=== PATIENT | male | born 1940 | race Hispanic/Latino ===

== ENCOUNTER 2017-08-12 19:34 | Emergency (ER) | payer OTHER ==
[~2017-08-12] VITALS: Ht 177.8 cm; Wt 86.2 kg
[~2017-08-12 19:34] MED LIST: LANTUS SQ; NOVALOG SQ; Z.0.GABAPENTIN600 MG PO; Z.0.LASIX20 MG PO; Z.0.LISINOPRIL10 MG PO; Z.0.OMEPRAZOLE40 MG PO; [UNRECOGNIZED DRUG - OTHER] PO; [UNRECOGNIZED DRUG - OTHER] SQ
[2017-08-12] MEDS ORDERED: SODIUM CHLORIDE 0.9% 1000ML 1,000 ML IV ONE (20:15)
== END 2017-08-12 21:42 | disposition home or self-care (01) ==
LOC: FSED 19:34
DX: R53.1 Weakness (principal); R51 Headache; R42 Dizziness and giddiness; S93.491A Sprain of other ligament of right ankle, initial encounter; I10 Essential (primary) hypertension; E11.9 Type 2 diabetes mellitus without complications; E78.5 Hyperlipidemia, unspecified
CPT/HCPCS: 70450; 71045; 73610; 80048; 81003; 85025; 93005; 99284; J7030

== ENCOUNTER → 2017-12-02 | Emergency (ER) | payer OTHER ==
[~2017-12-02] MED LIST changes: +METFORMIN HCL500 M1
== END | disposition left against medical advice (07) ==
LOC: FSED 22:29
DX: R51 Headache (principal)

== ENCOUNTER 2018-01-23 02:21 | Emergency (ER) | payer OTHER ==
[~2018-01-23] VITALS: Ht 177.8 cm; Wt 76.8 kg
[~2018-01-23 02:21] MED LIST changes: -METFORMIN HCL500 M1
[2018-01-23] MEDS ORDERED: SODIUM CHLORIDE 0.9% 1000ML 1,000 ML IV STA (02:47)
[2018-01-23] MEDS ORDERED: ONDANSETRON HCL INJ 2 MG/ML VIAL IV ONE (03:00)
[2018-01-23] MEDS ORDERED: FAMOTIDINE 20 MG/2 ML VIAL IV ONE (03:00)
[2018-01-23] MEDS ORDERED: INSULIN REGULAR, HUMAN 100 UNIT/1 ML 3ML VIAL IV ONE (03:00)
[2018-01-23 03:37] VITALS: BP 156/79
[2018-01-23] MEDS ORDERED: INSULIN REGULAR, HUMAN 100 UNIT/1 ML 3ML VIAL SQ ONE (04:00)
== END 2018-01-23 03:57 | disposition home or self-care (01) ==
LOC: FSED 02:21
DX: E11.65 Type 2 diabetes mellitus with hyperglycemia (principal); E86.0 Dehydration; F41.9 Anxiety disorder, unspecified
CPT/HCPCS: 99284; J7030

== ENCOUNTER 2018-01-28 08:46 | Emergency (ER) | payer OTHER ==
[~2018-01-28] VITALS: Ht 172.7 cm; Wt 78.9 kg
[2018-01-28] MEDS ORDERED: INSULIN REGULAR, HUMAN 100 UNIT/1 ML 3ML VIAL IV NR (10:00)
--- NOTE | 2018-01-28 10:10 | Diagnostic Imaging Report ---
PROCEDURE:CXR 1 [facility] COMPARISON:None. INDICATIONS:SOB FINDINGS:The lungs are free of infiltrate. Linear scarring in the left lung base laterally is present. No effusions. Cardiac silhouette is mildly prominent. Pulmonary vascularity is normal. There is calcification in the aortic knob. Degenerative changes of the spine are present. CONCLUSION:No acute cardiopulmonary abnormality. Severiano Jordan D.O. Dictated by: Severiano Jordan D.O. on 01/28/2018 at 10:20 Electronically approved by: Severiano Jordan D.O. on 01/28/2018 at 10:20
[2018-01-28 11:10] VITALS: BP 139/85
[2018-01-29] MEDS ORDERED: METFORMIN HCL500 M1 (13:41)
== END 2018-01-28 11:13 | disposition home or self-care (01) ==
LOC: FSED 08:46
DX: R06.00 Dyspnea, unspecified (principal); F41.1 Generalized anxiety disorder; D50.0 Iron deficiency anemia secondary to blood loss (chronic)
CPT/HCPCS: 71045; 80053; 84484; 85025; 93005; 99283; J1817

== ENCOUNTER 2018-01-29 03:04 | Inpatient (IN) | payer OTHER ==
[~2018-01-29] VITALS: Ht 172.7 cm; Wt 79.2 kg
--- OUTSIDE RECORDS SUMMARY | 2018-01-29 03:07 | XMS REPORT ---
Author Author [facility] Address Unknown Phone Unavailable Care Team Providers Care Fab[employer] Access[employer] Estimator Name Role Phone Melida FRIEDMAN Unavailable Unavailable Problems This patient has no known problems. Allergies, Adverse Reactions, Alerts This patient has no known allergies or adverse reactions. Medications This patient has no known medications. Results Test Description Test Time Test Comments Text Results Atomic Results Result Comments CXR 1 [facility] 2018-01-28 10:20:00 [place] [id number] Patient Name: KADY STROUD MR #: [id number] : 1940 Age/Sex: 77/M Req #: [id number] Adm Physician: Ordered by: WILTON FRIEDMAN MD Report #: [id number] Location: [facility] Room/Bed: Procedure: [id number] HOPD/CXR 1 [facility] - [facility] Exam Date: 01/28/18 Exam Time: 1005 REPORT STATUS: Signed PROCEDURE: CXR 1 [facility] - [facility] COMPARISON: None. INDICATIONS: SOB FINDINGS: The lungs are free of infiltrate. Linear scarring in the left lung base laterally is present. No effusions. Cardiac silhouette is mildly prominent. Pulmonary vascularity is normal. There is calcification in the aortic knob. Degenerative changes of the spine are present. CONCLUSION: No acute cardiopulmonary abnormality. Josie Jordan D.O. Dictated by: Josie Jordan D.O. on 01/28/2018 at 10:20 Electronically approved by: Josie Jordan D.O. on 01/28/2018 at 10:20 Dictated By: JOSIE JORDAN DO 1020 Transcribed By: SHILPA on 01/28/18 1020 COPY TO: WILTON FRIEDMAN MD
--- NOTE | 2018-01-29 04:26 | Diagnostic Imaging Report ---
CXR 1 [facility], 01/29/2018 12:00 AM Technique: CXR 1 [facility] Comparison: None available. Clinical history: Patient not feeling well Findings: See Impression Impression: 1. Stable/normal cardiomediastinal silhouette. 2. Right lower lung consolidation compatible with pneumonia. Recommend follow-up upright PA and lateral. 3. No effusion or pneumothorax. Signed by: Dr Lani Young MD on 01/29/2018 4:23 AM
[2018-01-29] MEDS ORDERED: ONDANSETRON HCL INJ 2 MG/ML VIAL IV PRN (04:30)
[2018-01-29] MEDS ORDERED: MORPHINE SULFATE 2 MG/ML SYR IV PRN (04:30)
[2018-01-29] MEDS: SODIUM CHLORIDE 0.9% 1000ML 1,000 ML IV SCH ×2 (04:30→13:29)
[2018-01-29] MEDS ORDERED: ACETAMINOPHEN 325 MG TAB PO PRN (04:45)
[2018-01-29] MEDS ORDERED: DEXTROSE 50% SYRINGE 50 ML IV PRN (04:45)
[2018-01-29] MEDS: CEFTRIAXONE SOD 1 GM VIAL IV SCH (04:45)
[2018-01-29] MEDS ORDERED: INSULIN REGULAR, HUMAN 100 UNIT/1 ML 3ML VIAL IV ONE (04:45)
[2018-01-29] MEDS: AZITHROMYCIN 500MG/NS 250 ML 250 ML IV SCH (05:20)
[2018-01-29] MEDS: INSULIN REGULAR, HUMAN 100 UNIT/1 ML 3ML VIAL SQ SCH ×2 (07:30→11:30)
[2018-01-29] MEDS ORDERED: ASPIRIN 325 MG TAB EC PO SCH (09:00)
--- NOTE | 2018-01-29 11:35 | NUR ---
called [facility] to give report, report given to Tia
--- NOTE | 2018-01-29 11:39 | NUR ---
called [facility] for pt. transfer, s/w Malia
--- NOTE | 2018-01-29 12:03 | NUR ---
[facility] arrived. Pt. transported at 1215
[2018-01-29 13:19] VITALS: BP 116/56
[2018-01-29] MEDS ORDERED: METFORMIN HCL500 M1 (13:41)
[2018-01-29 14:00] VITALS: BP 116/56
[2018-01-29 14:41] VITALS: BP 116/56
[2018-01-29] MEDS ORDERED: INSULIN DETEMIR 100 UNIT/ML PEN SQ NR (16:15)
[2018-01-29 16:30] VITALS: BP 124/56
[2018-01-29] MEDS ORDERED: TIZANIDINE HCL 4 MG TAB PO PRN (16:45)
[2018-01-29] MEDS: INSULIN LISPRO 100 UNIT/1 ML 3ML VIAL SQ SCH ×2 (17:16→21:00)
[2018-01-29] MEDS: METFORMIN HCL 500 MG TAB PO SCH (17:16)
[2018-01-29 20:21] VITALS: BP 117/58
[2018-01-29] MEDS: GABAPENTIN 300 MG CAP PO SCH (20:24)
[2018-01-29 23:07] VITALS: BP 117/58
[2018-01-30] VITALS (8 sets, daily range): BP systolic 99–157; BP diastolic 51–77
[2018-01-30] MEDS: AZITHROMYCIN 500MG/NS 250 ML 250 ML IV SCH (04:40)
[2018-01-30] MEDS: CEFTRIAXONE SOD 1 GM VIAL IV SCH (04:40)
[2018-01-30 04:51] LABS: BASOPHILS % 0.3 % (0.0-1.0); EOSINOPHILS # (AUTO) 0.1 (0.0-0.4); EOSINOPHILS % 0.9 % (0.0-6.0); LYMPHOCYTES # (AUTO) 1.3 (1.0-3.2); LYMPHOCYTES % 17.4 % (18.0-39.1); MEAN CORPUSCULAR HEMOGLOBIN 28.4 pg (28-32); MEAN CORPUSCULAR HGB CONC 31.9 g/dL (31-35); MEAN CORPUSCULAR VOLUME 88.8 fL (81-99); MONOCYTES # (AUTO) 0.5 (0.2-0.8); MONOCYTES % 7.3 % (4.4-11.3); NEUTROPHILS # (AUTO) 5.4 (2.1-6.9); NEUTROPHILS % 73.7 % (38.7-80.0); PLATELET COUNT 151 x10e3/uL (140-360); RED BLOOD COUNT 2.15 x10e6/uL (4.3-5.7); RED CELL DISTRIBUTION WIDTH 13.1 % (11.7-14.4)
[2018-01-30 05:13] LABS: CALCIUM 8.3 mg/dL (8.4-10.2); CREATININE, SERUM 1.17 mg/dL (0.72-1.25)
[2018-01-30 05:28] LABS: HEMATOCRIT 19.1 % (38.2-49.6); HEMOGLOBIN 6.1 g/dL (14.0-18.0)
[2018-01-30] MEDS ORDERED: SODIUM CHLORIDE 0.9% 250ML 250 ML IV ONE ×2 (06:15→12:30)
[2018-01-30] MEDS: INSULIN LISPRO 100 UNIT/1 ML 3ML VIAL SQ SCH ×5 (08:00→21:00)
[2018-01-30] MEDS: GABAPENTIN 300 MG CAP PO SCH ×3 (08:15→22:04)
[2018-01-30] MEDS: METFORMIN HCL 500 MG TAB PO SCH ×2 (08:15→17:40)
--- NOTE | 2018-01-30 10:40 | NUR ---
Patient is receiving blood transfusion at this time, he is tolerating well with no complications or reaction noted, his family is at the bedside, he denies needing anything at this time, call light in reach, will continue to monitor.
--- NOTE | 2018-01-30 11:00 | NUR ---
Blood transfusion complete. Patient has no complaints and no reaction is observed.
[2018-01-30] MEDS ORDERED: ZOLPIDEM TARTRATE 5 MG TAB PO PRN (12:30)
[2018-01-30] MEDS ORDERED: IOPAMIDOL 370 MG/ML 200 ML INFUS..BTL INJ ONE (14:16)
[2018-01-30] MEDS ORDERED: SODIUM CHLORIDE 0.9% 50ML 50 ML ONE (14:16)
--- NOTE | 2018-01-30 14:20 | NUR ---
ST NOTE: Order acknowledged at 1320 on 01-30-18. Speech Therapy to address order on 01-31-18. Handoff to Radiology.
--- NOTE | 2018-01-30 14:25 | Diagnostic Imaging Report ---
EXAM: CT Chest WITH contrast INDICATION: Abnormal chest x-ray , right lower lobe opacity COMPARISON: 01/28/2018 and 01/29/2018 radiograph, no report available TECHNIQUE: The Chest was scanned utilizing a multidetector helical scanner after administration of IV contrast. Coronal and sagittal reformations were obtained. IV CONTRAST: 100 mL Isovue-370 COMPLICATIONS: None RADIATION DOSE: Total DLP: 522 mGy*cm Estimated effective dose: (DLP x 0.015 x size factor) mSv CTDIvol has been reviewed. It is below the limits set by the Radiation Protocol Committee (RPC). Appropriate CT dose reduction techniques were utilized. FINDINGS: Lines and Tubes: None. Lower Neck: Thyroid grossly unremarkable. Heart and Great Vessels: The aorta and main pulmonary artery measure 37 and 30 mm. respectively. No significant pericardial effusion. Transverse diameter left atrium 49 mm. Advanced coronary vascular calcifications and aortic valvular calcifications. Lymph Nodes: 28 x 14 mm level 7, 13 x 12 mm right level 12, 11 x 10 mm right level 10. Lungs: Septal thickening in all 5 lobes. There is no pneumothorax. Scattered geographic groundglass opacities are present bilaterally, most notably in the right middle lobe and right lower lobe with moderate scattered pleural nodularity and small bilateral pleural effusions. Upper abdomen: AP diameter spleen 161 mL. Minimal nodularity of the liver. Splenic varices. 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 Indeterminate 17 mm left adrenal nodule with Hounsfield units 65. 25 mm soft tissue nodule left upper lobe adjacent to stomach image 102. This does not appear to be related to the stomach, although, small diverticulum possible. Bones and Soft Tissues: Moderate degenerative changes. IMPRESSION: 1. Septal thickening, scattered groundglass opacities, and small effusions consistent with volume overload. 2. Given superimposed patchy/alveolar opacities superimposed pneumonia should be considered. Underlying malignancy not excluded given pleural nodularity. Follow-up CT chest with contrast recommended in 3-4 weeks after resolution of acute symptoms. 3. Nodular liver, splenomegaly, and varices consistent with cirrhosis/portal hypertension. 4. 25 mm soft tissue nodule left upper quadrant. It is unclear whether this represents a soft tissue mass or gastric diverticulum. 5. Mediastinal/right hilar borderline adenopathy, possibly reactive, with malignancy not excluded. 6. Dilated left atrium. Echocardiogram could be obtained for further evaluation. Signed by: Dr. Aravind Cottrell MD on 01/30/2018 2:22 PM
--- NOTE | 2018-01-30 15:12 | History and Physical ---
REFERRING PHYSICIAN: Dr. Kash Vargas of the [facility]. CHIEF COMPLAINT: Cough and dyspnea. HISTORY OF PRESENT ILLNESS: The patient is a 77-year-old man. He has a history of insulin dependent diabetes mellitus. He notes that he has coughing and congestion for several weeks. Sometimes the cough is worse when he eats. He has associated dyspnea. He also has some nasal drainage. He notes some heartburn and indigestion as well. He denies any fevers or chest pain. He was admitted to the hospital and found to have a right lower lobe infiltrate consistent with pneumonia on his x-ray. His blood counts showed a hemoglobin of 6.6 as well. He denies any melena, hematochezia or hematemesis. He denies any prior history of anemia or GI bleeding. PAST MEDICAL HISTORY: 1. Hypertension. 2. Diabetes. SURGICAL HISTORY: History of hernia repair. SOCIAL HISTORY: No prior history of smoking or drinking. ALLERGIES: THERE ARE NO KNOWN DRUG ALLERGIES. FAMILY HISTORY: Family history is noncontributory. REVIEW OF SYSTEMS: The patient denies any fever or headache. He has no neck pain. He has no sore throat. He has no chest pain. He does note some dyspnea and some cough. He has some acid reflux and heartburn. He denies any leg swelling. There are no focal neurological complaints. PHYSICAL EXAMINATION: VITAL SIGNS: The patient is afebrile. The blood pressure is 120/56 and the heart rate is 90. Respiratory rate is 18. His saturation is 97%. HEENT: Examination shows no facial swelling or erythema. The nasal mucosa is normal. The oropharynx is normal. LYMPHATIC: Examination shows no submandibular, cervical or supraclavicular adenopathy. CARDIOVASCULAR: Exam reveals a regular rate and rhythm with a normal S1 and S2. There are no murmurs or rubs. LUNGS: Auscultation reveals decreased breath sounds on the right side. ABDOMEN: Soft and nontender. There is no rebound or guarding. EXTREMITIES: Examination shows no leg edema or calf tenderness. There is no cyanosis or clubbing. CUTANEOUS: Examination shows no rashes. NEUROLOGIC: Exam shows no focal abnormalities. LABORATORY DATA: The hemoglobin is 6.6 with a platelet count of 151 and a white blood cell count of 7.37. The sodium is 135. The BUN to creatinine ratio is 20 to 1.17. The blood sugar is 193. RADIOGRAPHIC DATA: Chest x-ray shows a right lower lobe consolidation. IMPRESSION: 1. Aspiration pneumonia with sepsis present on admission. 2. Anemia secondary to chronic blood loss. 3. Diabetes with associated renal insufficiency. 4. Acute kidney injury. 5. Hypertension. 6. Gastroesophageal reflux. PLAN: 1. Patient will be on appropriate antibiotics. 2. Swallowing evaluation to rule out aspiration pneumonia. 3. CT scan of the chest with IV contrast if possible. 4. Restart insulin and monitor blood sugars. 5. GI evaluation for possible GI bleeding. Job#: [id number] EV
[2018-01-30 15:19] LABS: FERRITIN 24.62 ng/mL (21.81-274.66)
[2018-01-30] MEDS ORDERED: SODIUM CHLORIDE 0.9% 250ML 250 ML ONE (15:43)
[2018-01-30] MEDS: METFORMIN HCL 500 MG TAB CR PO SCH (17:00)
--- NOTE | 2018-01-30 18:20 | NUR ---
2nd unit of blood has finished infusing with no problems. The patient has no complaints, VSS and his family is in the room, call light in reach
--- NOTE | 2018-01-30 18:25 | NUR ---
Rapid flu taken to lab
--- NOTE | 2018-01-30 23:32 | Consultation ---
DATE OF CONSULTATION: January 30, 2018 GI CONSULT NOTE REFERRING PHYSICIAN: Manda Alvarez MD REASON FOR CONSULTATION: Profound anemia of unclear etiology. HISTORY OF PRESENT ILLNESS: This is a 77-year-old very pleasant male who has a history of insulin-dependent diabetes, got admitted with profound weakness, lethargy and drowsiness. Workup revealed that he has pneumonia. He was also found to have significant anemia with hemoglobin of 6.1 and MCV of 88.8. He got admitted on the medical floor for further evaluation and management. He is being started empirically on intravenous antibiotics. GI is being consulted to evaluate him for anemia of unclear etiology. On further questioning, he stated that he has had upper endoscopy and colonoscopy in the remote past. Denies any history of hematemesis, hematochezia, or any melena. No hematuria, hemoptysis or any epistaxis. He has not had any gastric bypass surgery in his life in the past. Denies any history of any GI malabsorptive disorders. He subsequently had a CT of the chest with IV contrast that revealed incidental cirrhosis, 25 mm soft tissue mass in the left upper quadrant suggestive of either a soft tissue mass or a gastric diverticulum. Chest portion of the CT scan showed septal wall thickening with superimposed patchy alveolar opacities suggestive of pneumonia. Patient has uncontrolled diabetes. He has never had any alcohol dependence in his life. He was never told that he has liver cirrhosis. Patient's platelet count was noted at 151. REVIEW OF SYSTEMS: Twelve-point systems reviewed. Symptomatology is limited as per HPI. PAST MEDICAL HISTORY: Hypertension and type 2 diabetes. PAST SURGICAL HISTORY: Hernia repair. FAMILY HISTORY: Noncontributory. SOCIAL HISTORY: No smoking, alcohol, or any illicit drug use. ALLERGIES: NONE. HOME MEDICATIONS: Furosemide, gabapentin, insulin glargine, lisinopril, metformin, omeprazole, tizanidine and NovoLog insulin. Inpatient medication list is reviewed as per APR. PHYSICAL EXAMINATION VITALS: Temperature 98, pulse 78, respirations 20, blood pressure 157/77, oxygen saturation 98% on room air. GENERAL: Not in any acute distress. HEENT: Gross pallor. Oral mucosa is moist. Anicteric sclerae. CVS: S1, S2 regular. LUNGS: Bilaterally scattered rales with occasional rhonchi. ABDOMEN: Soft, nondistended, and nontender. No palpable mass or hernia. Positive bowel sounds. EXTREMITIES: Warm. No leg edema. LABORATORY DATA: WBC 7.37, hemoglobin 6.1, hematocrit 19.1, MCV 88.8, and platelet count 151. Sodium 135, potassium 4.0, chloride 104, bicarb 22, BUN 20, creatinine 1.17, and glucose 193. IMAGING: CT of the chest with IV contrast showed; 1. Septal thickening, scattered ground-glass opacities and small effusion consistent with volume overload. 2. Given superimposed patchy/alveolar opacities, superimposed pneumonia should be considered. Underlying malignancy not excluded given the pleural nodularity. Followup CT chest with contrast is recommended in 3-4 weeks after resolution of acute symptoms. 3. Nodular liver, splenomegaly and varices consistent with cirrhosis/portal hypertension. 4. A 25 mm soft tissue nodule, left upper quadrant. It is unclear whether this represents a soft tissue mass or gastric diverticulum. 5. Mediastinal/right hilar borderline adenopathy, possibly reactive with malignancy not excluded. 6. Dilated left atrium. Echocardiogram could be obtained for further evaluation. IMPRESSION 1. Anemia with normocytic picture. No source of blood loss by history. 2. Incidental liver cirrhosis with varices suggestive of underlying portal hypertension. Patient has no history of alcohol dependence in the past. He could have SILVA liver cirrhosis given the history of diabetes and hyperlipidemia. 3. Incidental 25 mm nodule in the left upper quadrant, not clear whether it is gastric diverticulum versus soft tissue mass. This further needs evaluation either with endoscopy and subsequently endoscopic ultrasound if needed. 4. Pneumonia. 5. Diabetes. PLAN: From GI standpoint, recommend to check stool for occult blood loss. Anemia profile that should include ferritin, TIBC as well as iron saturation. Once it is established that patient's stool is having occult blood, anemia profile is consistent with iron deficiency, then patient should definitely undergo bidirectional endoscopy. Patient's cirrhosis seems to be quite well compensated. Recommend to put him on low-salt diet. Ensure 1 or 2 bowel movements daily. Otherwise add lactulose. He should have 1 or 2 bowel movements daily in order to prevent any incidence of portosystemic encephalopathy. I thank, Dr. Alvarez, for allowing me to participate in the care of this patient. In the interim, we will keep him on clear liquid diet. In case if he needs a colonoscopy, then we can give him bowel prep. Job#: [id number] ARLINE
[2018-01-31] VITALS: BP 106/54
[2018-01-31 04:00] VITALS: BP 153/69
--- NOTE | 2018-01-31 05:17 | NUR ---
Urine specimen sent to lab for analysis.
[2018-01-31] MEDS: AZITHROMYCIN 500MG/NS 250 ML 250 ML IV SCH (05:30)
[2018-01-31] MEDS: CEFTRIAXONE SOD 1 GM VIAL IV SCH (05:30)
[2018-01-31 06:08] LABS: CLARITY,URINE CLEAR (CLEAR); COLOR,URINE YELLOW (YELLOW)
[2018-01-31 06:09] LABS: BILIRUBIN,URINE NEGATIVE (NEGATIVE); KETONES,URINE NEGATIVE (NEGATIVE); LEUKOCYTE ESTERASE ,URINE NEGATIVE (NEGATIVE); NITRITE,URINE NEGATIVE (NEGATIVE); PROTEIN,URINE DIPSTICK 1+ (NEGATIVE); URINE UROBILINOGEN 0.2 mg/dL (0.2 - 1)
[2018-01-31 06:17] LABS: BACTERIA,URINE FEW /HPF; EPITHELIAL CELLS,URINE FEW /LPF; RBC,URINE 0-5 /HPF (0-5); WBC,URINE (MAN) 0-5 /HPF (0-5)
[2018-01-31 06:34] LABS: BASOPHILS % 0.4 % (0.0-1.0); EOSINOPHILS # (AUTO) 0.1 (0.0-0.4); EOSINOPHILS % 1.9 % (0.0-6.0); HEMATOCRIT 26.8 % (38.2-49.6); HEMOGLOBIN 8.8 g/dL (14.0-18.0); LYMPHOCYTES % 14.5 % (18.0-39.1); MEAN CORPUSCULAR HEMOGLOBIN 28.9 pg (28-32); MEAN CORPUSCULAR HGB CONC 32.8 g/dL (31-35); MEAN CORPUSCULAR VOLUME 88.2 fL (81-99); MONOCYTES # (AUTO) 0.5 (0.2-0.8); MONOCYTES % 7.6 % (4.4-11.3); NEUTROPHILS # (AUTO) 5.1 (2.1-6.9); PLATELET COUNT 149 x10e3/uL (140-360); RED BLOOD COUNT 3.04 x10e6/uL (4.3-5.7); RED CELL DISTRIBUTION WIDTH 13.4 % (11.7-14.4)
[2018-01-31 06:56] LABS: ALANINE AMINOTRANSFERASE 15 IU/L (0-55); ALBUMIN 2.4 g/dL (3.5-5.0); ALBUMIN/GLOBULIN RATIO 0.7 (0.8-2.0); ALKALINE PHOSPHATASE 83 IU/L (40-150); ANION GAP 13.2 mmol/L (8-16); BLOOD UREA NITROGEN 16 mg/dL (7-26); BUN/CREATININE RATIO 15 (6-25); CALCIUM 8.5 mg/dL (8.4-10.2); CARBON DIOXIDE 24 mmol/L (22-29); CHLORIDE 104 mmol/L (98-107); CREATININE, SERUM 1.09 mg/dL (0.72-1.25); EST GLOMERULAR FILTRATION RATE > 60 ML/MIN (60-); GLUCOSE 181 mg/dL (74-118); POTASSIUM 4.2 mmol/L (3.5-5.1); SODIUM 137 mmol/L (136-145)
[2018-01-31] MEDS ORDERED: PANTOPRAZOLE SOD 40 MG TABEC PO SCH (07:30)
[2018-01-31 08:00] VITALS: BP 145/78
[2018-01-31] MEDS: METFORMIN HCL 500 MG TAB PO SCH (08:00)
[2018-01-31] MEDS ORDERED: LISINOPRIL 10 MG TAB PO SCH (09:00)
[2018-01-31] MEDS ORDERED: INSULIN GLARGINE 100 UNITS/1 ML 3ML PEN SQ SCH (09:00)
[2018-01-31] MEDS: INSULIN LISPRO 100 UNIT/1 ML 3ML VIAL SQ SCH ×2 (09:00)
[2018-01-31] MEDS: GABAPENTIN 300 MG CAP PO SCH (09:01)
[2018-01-31] MEDS: METFORMIN HCL 500 MG TAB CR PO SCH (09:01)
[2018-01-31 10:50] VITALS: BP 145/78
[2018-01-31 12:00] VITALS: BP 101/64
--- NOTE | 2018-01-31 15:04 | NUR ---
Paged Dr. Portillo per Dr. Parr's request to see if he plans on doing any endoscopy or other procedures. Awaiting call back
--- NOTE | 2018-01-31 15:15 | NUR ---
Dr. Shelton returned call and spoke with Dr. Parr while he was here. IT is OK for patient to dc from GI standpoint but needs to have gastroenterology evaluation as outpatient. Dr Parr spoke to the patient and the family about discharging and follow up instructions. They verbalized understanding.
[2018-01-31 16:00] VITALS: BP 127/74
--- NOTE | 2018-01-31 16:30 | NUR ---
Discharge instructions and prescription were given to the patient and his daughter, they verbalized understanding. IV was removed from left FA with tip intact.
--- NOTE | 2018-01-31 19:58 | Discharge Summary ---
DISCHARGE DIAGNOSES 1. Aspiration pneumonia with sepsis present on admission. 2. Anemia secondary to chronic blood loss, requiring 2 units of packed red blood cells. 3. Acute kidney injury. 4. 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 5. Splenomegaly. 6. A 2.5 cm soft tissue mass in the left upper quadrant, possibly representing a gastric diverticulum. 7. Borderline mediastinal right hilar adenopathy. CONSULTING PHYSICIAN: Dr. David Portillo of gastroenterology. RADIOGRAPHIC DATA 1. Chest x-ray shows a right lower lobe consolidation consistent with pneumonia. 2. CT scan of the chest with contrast shows patchy alveolar opacities, possibly representing pneumonia. 3. Nodular liver, splenomegaly, and varices consistent with cirrhosis and portal hypertension. 4. A 25-mm soft tissue nodule in the left upper quadrant, possibly representing a soft tissue mass or gastric diverticulum. 5. Borderline mediastinal right hilar adenopathy. HISTORY OF PRESENT ILLNESS: The patient is a 77-year-old man. He has a history of insulin-dependent diabetes. He came in complaining of coughing and congestion for several weeks. He notes that his cough is worse when he eats. HOSPITAL COURSE: The patient was admitted. His chest x-ray showed a lower lobe infiltrate. A CT scan confirmed some ground-glass opacities in the lower lobes consistent with aspiration pneumonitis. The patient was evaluated by speech therapy at the bedside, but did not have a modified barium swallow. Initial lab work showed a hemoglobin of 6.6. He received 2 units of packed red blood cells. He was seen by GI. Gastroenterology suspected a subacute GI bleed related to the cirrhosis varices. He also had a possible gastric diverticulum. The patient was very eager to go home because of the holidays. He felt better and no longer complained of any cough or fever. He had no active bleeding. DISPOSITION: Patient will be discharged to follow up in the [facility]. He will need a repeat CT scan of the chest in 4 to 6 weeks after completing his antibiotics. He also needs a swallowing evaluation as an outpatient as well as a consultation with gastroenterology. Job#: [id number] RTY cc:SHAZIA HERRING MD
== END 2018-01-31 16:43 | disposition home or self-care (01) | DRG 871 ==
LOC: ER 03:04 → ERHOLD 04:26 → MED/SURG2 13:07
PROVIDERS: ADMIT Internal Medicine; ATTEND Internal Medicine
DX: A41.9 Sepsis, unspecified organism (principal); J69.0 Pneumonitis due to inhalation of food and vomit; I85.11 Secondary esophageal varices with bleeding; N17.9 Acute kidney failure, unspecified; K76.6 Portal hypertension; Z82.49 Family history of ischemic heart disease and other diseases of the circulatory system; E11.65 Type 2 diabetes mellitus with hyperglycemia; I44.1 Atrioventricular block, second degree; E86.0 Dehydration; F41.9 Anxiety disorder, unspecified; Z79.4 Long term (current) use of insulin; I10 Essential (primary) hypertension; K21.9 Gastro-esophageal reflux disease without esophagitis; K74.60 Unspecified cirrhosis of liver; D50.0 Iron deficiency anemia secondary to blood loss (chronic); R16.1 Splenomegaly, not elsewhere classified; R59.0 Localized enlarged lymph nodes; K31.4 Gastric diverticulum
CPT/HCPCS: 36415; 71045; 71260; 80048; 80053; 81001; 81003; 82550; 82553; 82728; 82948; 83540; 84466; 84484; 85014; 85025; 86850; 86900; 86920; 87040; 87400; 87449; 93005; 99284; J0456; J0696; J2270; J2405; J7030; J7050; P9016; Q9967